=== PATIENT | female | born 1980 | race Caucasian/White ===

== ENCOUNTER 2017-10-26 08:38 | Emergency (ER) | payer BC ==
[2017-10-26 08:55] VITALS: BP 103/59
--- NOTE | 2017-10-26 11:22 | UC ---
Rojas Saleh Gabriel, scribed for Ellen Mcintosh MD on 10/26/17 at 0943 . FLU HPI - HPI Summary HPI Summary: This patient is a 36 year old F presenting to [facility] c/o last evening rather sudden onset feeling very tired, weak, nausea, h/a (not reported as whol). Better today, but concerned d/t + week and + child with Infl exposure last week. No rash. Mild sore throat. ? fever. + chill last night. Denies change in urinary habit, no dysuria / hematuria. No vag bleed or d/c. - History of Current Complaint Chief Complaint: UCGeneralIllness Stated Complaint: FLU SYMPTOMS Time Seen by Provider: 10/26/17 09:23 Hx Obtained From: Patient ?: Yes Onset/Duration: Lasting Days - 1, Still Present Severity Currently: Mild Severity Initially: Moderate Pain Intensity: 2 Pain Scale Used: 0-10 Numeric Associated Signs & Symptoms: Positive: Fever, Cough, Sore Throat - Allergy/Home Medications Allergies/Adverse Reactions: Allergies Allergy/AdvReac Type Severity Reaction Status Date / Time Sulfa Antibiotics Allergy Hives Verified 10/26/17 08:55 PMH/Surg Hx/FS Hx/Imm Hx Previously Healthy: Yes Endocrine History: Thyroid Disease, Hypothyroidism Psychological History: Anxiety Other History Of: Negative For: Hepatitis B - Surgical History Surgical History: Yes Surgery Procedure, Year, and Place: ear tubes as a child. wisdom teeth - Social History Lives: With Family Alcohol Use: None Substance Use Type: None Smoking Status (MU): Never Smoked Tobacco Have You Smoked in the Last Year: No - Immunization History Most Recent Influenza Vaccination: NOT UTD Most Recent Tetanus Shot: declined Most Recent Pneumonia Vaccination: never recieved Review of Systems Constitutional: Fever, Chills, Fatigue, Other - general malaise Skin: Negative Eyes: Negative ENT: Sore Throat Respiratory: Shortness Of Breath Cardiovascular: Negative Gastrointestinal: Negative, Other - ABD cramping Motor: Negative Neurovascular: Negative Musculoskeletal: Myalgia Neurological: Headache, Weakness Psychological: Negative Is Patient Immunocompromised?: No All Other Systems Reviewed And Are Negative: Yes Physical Exam Triage Information Reviewed: Yes Appearance: Well-Nourished - sitting up, looks tired but nontoxic Vital Signs: Initial Vital Signs Temp 98.1 F 10/26/17 08:49 Pulse 79 10/26/17 08:49 Resp 16 10/26/17 08:49 BP 103/59 10/26/17 08:49 Pulse Ox 100 10/26/17 08:49 Vital Signs Reviewed: Yes Eye Exam: Normal ENT Exam: Other - Posterior pharynx erythema ENT: Positive: Pharyngeal erythema - post pharynx + erythema. Uvula midline, no appreciable sores., TM dull, Other - R TM dull and erwin, slight bulge. Left TM erwin, o/w normal. Neck exam: Normal Neck: Positive: Supple, Nontender, No Lymphadenopathy Respiratory Exam: Normal - no dyspnea, no tachypnea, normal respiratory rate Respiratory: Positive: Chest non-tender, Lungs clear, Normal breath sounds, No respiratory distress Cardiovascular Exam: Normal - Heart rate regular, good general skin color, good capillary refill Cardiovascular: Positive: RRR, No Murmur, Pulses Normal, Brisk Capillary Refill Abdominal Exam: Normal Abdomen Description: Positive: Nontender, No Organomegaly, Soft Bowel Sounds: Positive: Present Musculoskeletal Exam: Normal Musculoskeletal: Positive: Strength Intact Neurological Exam: Normal - nonfocal, grossly intact Psychological Exam: Normal - conversing easily and appropriately Skin Exam: Normal - no visible or reported rash Flu Course/Dx - Course Course Of Treatment: Influenze NS neg. RStrep neg. d/w pt results, coa / tx plan. Questions as posed answered to the best of my ability. Reviewed need for close f/u with primary care provider, and seek medical attention worse or new problems in the meantime. - Differential Dx/Diagnosis Provider Diagnoses: Viral URI Discharge - Discharge Plan Condition: Stable Disposition: HOME Patient Education Materials: Viral Syndrome (ED) Forms: *Work Release Referrals: Chelsea Baker NP [Primary Care Provider] - Additional Instructions: Consider antihistamine (ex Benadryl) per packaging instructions as needed congestion. Please follow up with your primary care provider as scheduled - recommend recheck in the next week if possible. Please see medical attention for worse or new problems in the meantime. The documentation as recorded by the Rojas parson Gabriel accurately reflects the service I personally performed and the decisions made by me, Ellen Mcintosh MD.
== END 2017-10-26 10:40 | disposition home or self-care (01) ==
LOC: UCEAST 08:38
DX: O26.891 Other specified pregnancy related conditions, first trimester (principal); J06.9 Acute upper respiratory infection, unspecified; Z3A.00 Weeks of gestation of pregnancy not specified; E03.9 Hypothyroidism, unspecified; F41.9 Anxiety disorder, unspecified; Z88.2 Allergy status to sulfonamides
CPT/HCPCS: 87502; 87651; 99211; G0463

== ENCOUNTER 2018-05-30 09:13 | Inpatient (IN) | payer BC ==
[2018-05-30 10:34] LABS: ABS Basophils 0 10^3/ul (0-0.2); ABS Eosinophils 0.1 10^3/ul (0-0.6); ABS Lymphocytes 1.1 10^3/ul (1.0-4.8); ABS Monocytes 0.5 10^3/ul (0-0.8); ABS Neutrophils 9.2 10^3/ul (1.5-7.7); ABS Nucleated RBC 0 10^3/ul; Eosinophil % 1.1 % (0-6); Hematocrit 35 % (35-47); Lymphocyte % 9.9 % (25-47); Mean Corpuscular HGB Conc 34 g/dl (31-36); Mean Corpuscular Hemoglobin 33 pg (27-31); Mean Corpuscular Volume 97 fL (80-97); Nucleated Red Blood Cells % 0; Platelet Count 258 10^3/ul (150-450); Red Cell Distribution Width 13 % (10.5-15); White Blood Count 10.8 10^3/ul (3.5-10.8)
--- NOTE | 2018-05-30 10:52 | HP ---
General Information - General Information Maternal Age: 37 Grav: 7 Para: 2 SAB: 3 IEA: 1 Estimated Due Date: 06/04/18 Determined By: LMP Gestational Age in Weeks/Days: 39.2 Maternal Blood Type and Rh: A Negative - Results this Serology/RPR Result: Non-Reactive Rubella Result: Immune HBsAg Result: Negative HIV Result: Negative GBS Culture Result: Negative Past Medical History Delivery History: Hx Uncomplicated Vaginal Delivery Pertinent Past Medical History: Non-Contributory Pertinent Past Surgical History: See Records Pertinent Family History: Non-Contributory - Antepartal Records Antepartal Records: Reviewed, Uncomplicated Review of Systems Constitutional: Comfortable CV Complaint: No Respiratory: Shortness of Breath: No Gastrointestinal: No Nausea/Vomiting Genitourinary: No Dysuria, No Bleeding, No Leaking Fluid Musculoskeletal: Contractions - irregular Neurological: No Headache Movement: Normal Exam Allergies/Adverse Reactions: Allergies Sulfa (Sulfonamide Antibiotics) Allergy (Verified 05/30/18 10:30) Hives Lab Values - Entire Visit: Laboratory Tests 05/30/18 10:11 WBC 10.8 RBC 3.60 L Hgb 12.0 Hct 35 MCV 97 MCH 33 H MCHC 34 RDW 13 Plt Count 258 MPV 8.0 Neut % (Auto) 84.6 H Lymph % (Auto) 9.9 L [place] % (Auto) 4.2 Eos % (Auto) 1.1 Baso % (Auto) 0.2 Absolute Neuts (auto) 9.2 H Absolute Lymphs (auto) 1.1 Absolute Monos (auto) 0.5 Absolute Eos (auto) 0.1 Absolute Basos (auto) 0 Absolute Nucleated RBC 0 Nucleated RBC % 0 - Measurements Height: 5 ft Weight: 156 lb Weight in lbs: [id number] Body Mass Index (BMI): 30.4 Pre- Weight: 118 lb Weight Gained This : 38 lbs and 0 ozs - Exam Breast: Breast Exam Deferred Extremities: No Edema Heart: Normal Rhythm/Heart Sounds HEENT: No Significant Findings - Abdominal Exam Abdomen Exam: Non-Tender - Ultrasound/Biophysical Profile Ultrasound Status: Not Done Targeted Exam Findings Cervical Exam: 2cm Effacement: 70% Station: -2 Presenting Part: Vertex Membrane Status: AROM Amniotic Fluid Evaluation: Clear EFM Findings - External Monitor Findings Baseline Heart Rate: 135 External Monitor Findings: Accelerations Present, No Pattern of Variable or Late Decelerations, Variability Moderate, Baseline Stable Contractions: Regular - q6-7min Assessment/Plan - Assessment @39.2wks for induction at term. GBS neg - Plan Plan: Induction
[2018-05-30] MEDS ORDERED: OBEPIDURAL* 250 ML EPIDURAL ONE (11:33)
[2018-05-30] MEDS ORDERED: Sodium Citrate/Citric Acid* 15 ML UDC PO PRN (12:14)
[2018-05-30] MEDS ORDERED: Famotidine TAB* 20 MG PO PRN (12:14)
[2018-05-30] MEDS ORDERED: Phenylephrine IV* 40 MCG/ML 10 ML SYRINGE IV PUSH PRN ×2 (12:14)
[2018-05-30] MEDS ORDERED: OBEPIDURAL* 250 ML EPIDURAL SCH (13:00)
[2018-05-30] MEDS ORDERED: Oxytocin in LR* 20 UNITS/1,000 ML BAG IVPB SCH ×2 (14:00→18:00)
[2018-05-30] MEDS ORDERED: Witch Hazel PAD* JAR TOPICAL PRN (17:20)
[2018-05-30] MEDS ORDERED: Glycerin ADULT SUPP PR PRN (17:20)
[2018-05-30] MEDS ORDERED: Dibucaine 1% 28.35 GM TUBE PR PRN (17:20)
[2018-05-30] MEDS ORDERED: RHO D Immune Globulin (HUMAN)* 300 MCG = 1,500 I.U. INJ IM ONE (17:20)
[2018-05-30] MEDS ORDERED: Acetaminophen TAB* 325 MG PO PRN (17:20)
--- NOTE | 2018-05-30 18:04 | PROCNOTE ---
[facility] OB: Delivery Note - Delivery A Date of : 05/30/18 Time of : 16:50 Score 1 Minute: 9 Score 5 Minutes: 9 Gestational Age in Weeks and Days at Delivery: 39 Weeks and 2 Days Delivery Method: Spontaneous Vaginal Labor: Induced Did Patient attempt ?: N/A, No Previous Amniotic Fluid: Clear Estimated Blood Loss: 200 Anesthesia/Analgesia: CEI for Labor Delivered By: Perla Valdez - Nursery Level of Nursery: Regular/Bedside - Perineum Perineal Injury: 1st Degree - Events Delivery Events of Note: Pitocin During Labor, Pitocin Only After Delivery - Additional Delivery Notes Additional Delivery Notes: Pt presented for term induction of labor. She underwent AROM to clear fluid and contractions increased in frequency to q4-5min. She received an epidural and a small amount of pitocin was started. She progressed to fully dilated and pushed under an hour to deliver the infant's head in ABHIJIT position followed quickly by the shoulders and the rest of the body. The baby was placed on mom' s abdomen. After 1 min the cord was clamped x2 and cut. The placenta delivered with gentle cord traction and fundal massage. Fundus firm with massage. A first degree laceration was repaired with 3-0 vicryl in several stitches. Good hemostasis. Mom and baby stable at time of note.
[2018-05-30] MEDS: Simethicone TAB* 80 MG TAB.CHEW PO SCH ×2 (21:12→21:14)
[2018-05-30] MEDS: Ibuprofen TAB* 600 MG PO PRN (21:31)
[2018-05-30] MEDS: Docusate CAP* 100 MG PO SCH (21:31)
[2018-05-31] MEDS: Ibuprofen TAB* 600 MG PO PRN ×4 (04:08→21:34)
[2018-05-31 08:13] LABS: ABS Basophils 0 10^3/ul (0-0.2); ABS Eosinophils 0.1 10^3/ul (0-0.6); ABS Lymphocytes 1.3 10^3/ul (1.0-4.8); ABS Monocytes 0.7 10^3/ul (0-0.8); ABS Neutrophils 10.7 10^3/ul (1.5-7.7); ABS Nucleated RBC 0 10^3/ul; Eosinophil % 0.8 % (0-6); Hematocrit 32 % (35-47); Hemoglobin 10.9 g/dl (12.0-16.0); Lymphocyte % 10.1 % (25-47); Mean Corpuscular HGB Conc 34 g/dl (31-36); Mean Corpuscular Hemoglobin 33 pg (27-31); Mean Corpuscular Volume 97 fL (80-97); Mean Platelet Volume 7.6 um3 (7.4-10.4); Nucleated Red Blood Cells % 0; Platelet Count 238 10^3/ul (150-450); Red Cell Distribution Width 14 % (10.5-15); White Blood Count 12.8 10^3/ul (3.5-10.8)
[2018-05-31] MEDS: Docusate CAP* 100 MG PO SCH ×3 (09:05→21:34)
[2018-05-31] MEDS: Ferrous Gluconate TAB* 324 MG TAB PO SCH ×2 (10:13→21:26)
[2018-06-01 08:45] VITALS: BP 113/67
== END 2018-06-01 10:52 | disposition home or self-care (01) | DRG 560 ==
LOC: MCHOBOUT 09:13 → MCHOB 09:36
PROVIDERS: ADMIT Obstetrics & Gynecology; ATTEND Obstetrics & Gynecology
PROC: 10E0XZZ Delivery of Products of Conception, External Approach (ICD-10-PCS; principal; 2018-05-30)
PROC: 3E033VJ Introduction of Other Hormone into Peripheral Vein, Percutaneous Approach (ICD-10-PCS; 2018-05-30)
PROC: 0HQ9XZZ Repair Perineum Skin, External Approach (ICD-10-PCS; 2018-05-30)
PROC: 10907ZC Drainage of Amniotic Fluid, Therapeutic from Products of Conception, Via Natural or Artificial Opening (ICD-10-PCS; 2018-05-30)
DX: O70.0 First degree perineal laceration during delivery (principal); Z3A.39 39 weeks gestation of pregnancy; Z37.0 Single live birth
CPT/HCPCS: 36415; 85025; 86850; 86900; 86901; A9270-GY